=== PATIENT | female | born 1965 | race Caucasian/White ===

== ENCOUNTER 2018-05-12 13:15 | Inpatient (IN) | payer BC ==
[~2018-05-12] VITALS: Ht 165.1 cm; Wt 73.9 kg
[~2018-05-12 13:15] MED LIST: DEXILANT60 MG PO; ZANTAC PO
[2018-05-12 14:14] LABS: BILIRUBIN,URINE NEGATIVE (NEGATIVE); CLARITY,URINE HAZY (CLEAR); COLOR,URINE YELLOW (YELLOW); KETONES,URINE TRACE (NEGATIVE); LEUKOCYTE ESTERASE ,URINE 1+ (NEGATIVE); NITRITE,URINE NEGATIVE (NEGATIVE); PROTEIN,URINE DIPSTICK NEGATIVE (NEGATIVE); URINE UROBILINOGEN 0.2 mg/dL (0.2 - 1)
[2018-05-12 14:19] LABS: BACTERIA,URINE FEW /HPF; EPITHELIAL CELLS,URINE FEW /LPF
[2018-05-12 14:26] LABS: BASOPHILS # (AUTO) 0.1 (0.0-0.1); BASOPHILS % 0.9 % (0.0-1.0); EOSINOPHILS # (AUTO) 0.3 (0.0-0.4); EOSINOPHILS % 2.7 % (0.0-6.0); HEMOGLOBIN 14.2 g/dL (12.0-16.0); LYMPHOCYTES # (AUTO) 1.9 (1.0-3.2); LYMPHOCYTES % 15.3 % (18.0-39.1); MEAN CORPUSCULAR HEMOGLOBIN 31.5 pg (28-32); MEAN CORPUSCULAR HGB CONC 34.6 g/dL (31-35); MEAN CORPUSCULAR VOLUME 90.9 fL (81-99); MONOCYTES % 7.9 % (4.4-11.3); NEUTROPHILS # (AUTO) 9.3 (2.1-6.9); NEUTROPHILS % 72.8 % (38.7-80.0); PLATELET COUNT 400 x10e3/uL (140-360); RED BLOOD COUNT 4.51 x10e6/uL (3.6-5.1); RED CELL DISTRIBUTION WIDTH 11.7 % (11.7-14.4)
[2018-05-12 14:51] LABS: BLOOD UREA NITROGEN 15 mg/dL (7-26); BUN/CREATININE RATIO 17 (6-25); CALCIUM 9.3 mg/dL (8.4-10.2); CARBON DIOXIDE 24 mmol/L (22-29); CHLORIDE 104 mmol/L (98-107); CREATININE, SERUM 0.87 mg/dL (0.57-1.11); EST GLOMERULAR FILTRATION RATE > 60 ML/MIN (60-); GLUCOSE 87 mg/dL (74-118); SODIUM 140 mmol/L (136-145)
--- NOTE | 2018-05-12 16:03 | Diagnostic Imaging Report ---
CT Abdomen And Pelvis with Intravenous Contrast INDICATION: ^RLQ pain ^[id number] ^1515 TECHNIQUE: Thin collimation axial images obtained from the diaphragm to the level of the pubic symphysis following the uneventful administration of 100 cc of low osmolar, nonionic intravenous contrast. Dose reduction techniques used: Automated exposure control, adjustment of the mAs and/or kVp according to patient size, standardized low-dose protocol, and/or iterative reconstruction technique. RADIATION DOSE: Total DLP: 372.8 mGy*cm Estimated effective dose: (DLP x 0.015 x size factor) mSv CTDIvol has been reviewed. It is below the limits set by the Radiation Protocol Committee (RPC). COMPARISON: None. ABDOMEN FINDINGS: Lung Bases: Clear. The visualized portions of the mediastinum are normal.. Liver: Normal attenuation. 3 mm low attenuating lesion in segment 2/3 is too small to characterize but is statistically a cyst. No enhancing lesions. Gallbladder: Present and appears normal. No biliary ductal dilatation. Pancreas: Normal attenuation without mass or ductal dilatation. Spleen: Normal in size. No evidence of mass. Adrenal Glands: No evidence for mass. Kidneys: Right: Normal enhancement. No soft tissue mass. No hydronephrosis. Left: Normal enhancement. No soft tissue mass. No hydronephrosis. Lymph Nodes: No enlarged abdominal or retroperitoneal lymph nodes.. Aorta: Normal in diameter PELVIS FINDINGS: Bowel: Stomach: Collapsed and normal in appearance. Small Bowel: Normal in caliber with normal wall thickness. The terminal ileum is normal. Large Bowel: Diverticulosis coli, with inflamed 2.3 cm diverticulum and an inflamed 5 mm diverticulum in the cecal base. No associated fluid collection. Appendix: Visualized from images 56-50 and is normal in appearance. Bladder: Normal. The uterus is atrophic. No adnexal mass. Peritoneum/retroperitoneum: No free fluid or fluid collection. Bones: Minimal degenerative changes of the lower lumbar spine. Soft tissues: Unremarkable. IMPRESSION: Acute diverticulitis involving the cecum. No inflammation of the appendix or terminal ileum. No bowel obstruction. Signed by: Dr. Delmis Clark MD on 05/12/2018 4:00 PM
[2018-05-12] MEDS ORDERED: CEFTRIAXONE SOD 1 GM/NS 50 ML 50 ML IV SCH (16:30)
[2018-05-12] MEDS: METRONIDAZOLE 500MG/NS 100ML 100 ML IV SCH ×2 (16:42→22:18)
[2018-05-12] MEDS: SODIUM CHLORIDE 0.9% 1000ML 1,000 ML IV SCH (16:55)
[2018-05-12] MEDS: ONDANSETRON HCL INJ 2MG/ML 2ML 2 MG/ML VIAL IV PRN ×2 (17:04→22:18)
[2018-05-12] MEDS: MORPHINE SULFATE INJ 4 MG/ML INJ 1ML IV PRN ×2 (17:06→22:18)
--- OUTSIDE RECORDS SUMMARY | 2018-05-12 17:09 | XMS REPORT ---
Author Author [facility] Address Unknown Phone Unavailable Care Team Providers Care Licensed Reactor Operator Name Role Phone Bran GREER Unavailable Unavailable Problems This patient has no known problems. Allergies, Adverse Reactions, Alerts This patient has no known allergies or adverse reactions. Medications This patient has no known medications. Results Test Description Test Time Test Comments Text Results Atomic Results Result Comments CT ABDOMEN/PELVIS W 2018-05-12 15:55:00 [place] [id number] Patient Name: NELSON MICHELE MR #: [id number] : 1965 Age/Sex: 52/F Req #: [id number] Adm Physician: Ordered by: BELKYS GALLEGO NP Report #: [id number] Location: ER Room/Bed: Procedure: [id number] CT/CT ABDOMEN/PELVIS W Exam Date: 05/12/18 Exam Time: 1515 REPORT STATUS: Signed CT Abdomen And Pelvis with Intravenous Contrast I NDICATION: RLQ pain [id number] 1515 TECHNIQUE: Thin collimation axial images obtained from the diaphragm to the level of the pubic symphysis following the uneventful administration of 100 cc of low osmolar, nonionic intravenous contrast. Dose reduction techniques used: Automated exposure control, adjustment of the mAs and/or kVp according to patient size, standardized low-dose protocol, and/or iterative reconstruction technique. RADIATION DOSE: Total DLP: 372.8 mGy*cm Estimated effective dose: (DLP x 0.015 x size factor) mSv CTDIvol has been reviewed. It is below the limits set by the Radiation Protocol Committee (RPC). COMPARISON: None. ABDOMEN FINDINGS: Lung Bases: Clear. The visualized portions of the mediastinum are normal.. Liver: Normal attenuation. 3 mm low attenuating lesion in segment 2/3 is too small to characterize but is statistically a cyst. No enhancing lesions. Gallbladder: Present and appears normal. No biliary ductal dilatation. Pancreas: Normal attenuation without mass or ductal dilatation. Spleen: Normal in size. No evidence of mass. Adrenal Glands: No evidence for mass. Kidneys: Right: Normal enhancement. No soft tissue mass. No hydronephrosis. Left: Normal enhancement. No soft tissue mass. No hydronephrosis. Lymph Nodes: No enlarged abdominal or retroperitoneal lymph nodes.. Aorta: Normal in diameter PELVIS FINDINGS: Bowel: Stomach: Collapsed and normal in appearance. Small Bowel: Normal in caliber with normal wall thickness. The terminal ileum is normal. Large Bowel: Diverticulosis coli, with inflamed 2.3 cm diverticulum and an inflamed 5 mm diverticulum in the cecal base. No associated fluid collection. Appendix: Visualized from images 56-50 and is normal in appearance. Bladder: Normal. The uterus is atrophic. No adnexal mass. Peritoneum/retroperitoneum: No free fluid or fluid collection. Bones: Minimal degenerative changes of the lower lumbar spine. Soft tissues: Unremarkable. IMPRESSION: Acute diverticulitis involving the cecum. No inflammation of the appendix or terminal ileum. No bowel obstruction. Signed by: Dr. Katherine Clark MD on 05/12/2018 4:00 PM Dictated By: KATHERINE CLARK MD 1600 Transcribed By: FLETCHER on 05/12/18 1600 COPY TO: BELKYS GALLEGO NP
--- NOTE | 2018-05-12 17:50 | NUR ---
RECD PT FROM ER VIA STRETCHER AAOX3,PAIN LEVEL 3-4 LT ABDOMEN,MEDICATED IN ER,PT AMBULATED TO BED ,HOB ELEVATED,CALL SORIANO IN REACH,IV FLUIDS INFUSHING TO RT AC PATENT,ANTIBIOTIC GIVEN.VS135/83,66,20,97.6
[2018-05-12] MEDS: LEVOFLOXACIN 500MG/D5W 100ML 100 ML IV SCH (18:11)
[2018-05-12 18:16] VITALS: BP 135/83
[2018-05-12] MEDS ORDERED: IOPAMIDOL 370 MG/ML 200 ML INFUS..BTL INJ ONE (18:24)
[2018-05-12] MEDS ORDERED: SODIUM CHLORIDE 0.9% 50ML 50 ML ONE (18:24)
[2018-05-12 19:00] VITALS: BP 124/61
--- NOTE | 2018-05-12 19:00 | NUR ---
patient received awake, alert, lying quietly in bed. pain minimal at this time. ivf continue to infuse without difficulty. initial nursing assessment complete at this time. patient instructed to call for assistance when needed.
[2018-05-12 19:58] VITALS: BP 124/61
[2018-05-12 20:00] VITALS: BP 124/61
[2018-05-13] VITALS (7 sets, daily range): BP systolic 102–121; BP diastolic 57–79
[2018-05-13] MEDS: SODIUM CHLORIDE 0.9% 1000ML 1,000 ML IV SCH ×3 (03:25→16:29)
[2018-05-13] MEDS: METRONIDAZOLE 500MG/NS 100ML 100 ML IV SCH ×4 (05:00→22:41)
[2018-05-13 05:50] LABS: BASOPHILS # (AUTO) 0.1 (0.0-0.1); BASOPHILS % 0.7 % (0.0-1.0); EOSINOPHILS # (AUTO) 0.3 (0.0-0.4); EOSINOPHILS % 3.1 % (0.0-6.0); HEMOGLOBIN 12.2 g/dL (12.0-16.0); LYMPHOCYTES # (AUTO) 1.6 (1.0-3.2); LYMPHOCYTES % 16.2 % (18.0-39.1); MEAN CORPUSCULAR HEMOGLOBIN 31.4 pg (28-32); MEAN CORPUSCULAR HGB CONC 33.9 g/dL (31-35); MEAN CORPUSCULAR VOLUME 92.8 fL (81-99); MONOCYTES # (AUTO) 0.8 (0.2-0.8); MONOCYTES % 8.2 % (4.4-11.3); NEUTROPHILS % 71.5 % (38.7-80.0); PLATELET COUNT 291 x10e3/uL (140-360); RED BLOOD COUNT 3.88 x10e6/uL (3.6-5.1); RED CELL DISTRIBUTION WIDTH 11.7 % (11.7-14.4)
[2018-05-13 06:30] LABS: ALANINE AMINOTRANSFERASE 15 IU/L (0-55); ALBUMIN 3.6 g/dL (3.5-5.0); ALBUMIN/GLOBULIN RATIO 1.3 (0.8-2.0); ALKALINE PHOSPHATASE 63 IU/L (40-150); ANION GAP 10.9 mmol/L (8-16); BLOOD UREA NITROGEN 8 mg/dL (7-26); BUN/CREATININE RATIO 9 (6-25); CALCIUM 9.3 mg/dL (8.4-10.2); CARBON DIOXIDE 27 mmol/L (22-29); CHLORIDE 106 mmol/L (98-107); CREATININE, SERUM 0.91 mg/dL (0.57-1.11); EST GLOMERULAR FILTRATION RATE > 60 ML/MIN (60-); GLUCOSE 93 mg/dL (74-118); POTASSIUM 3.9 mmol/L (3.5-5.1); SODIUM 140 mmol/L (136-145)
--- NOTE | 2018-05-13 07:14 | NUR ---
PATIENT IN BED RESTING WITH NO S/S OF DISCOMFORT. CALL LIGHT AT REACH.
[2018-05-13] MEDS: LEVOFLOXACIN 500MG/D5W 100ML 100 ML IV SCH (09:32)
[2018-05-13] MEDS: PANTOPRAZOLE 40 MG 10ML VIAL IV SCH (09:32)
--- NOTE | 2018-05-13 11:15 | NUR ---
MD IN AT THIS TIME. PATIENT'S DIET ADVANCED.
--- NOTE | 2018-05-13 15:27 | NUR ---
PATIENT ASSISTED WITH SHOWER AND BACK TO BED. IV FLUID INFUSING ORDERED. BED IN LOWER POSITION, CALL LIGHT AT REACH.
--- NOTE | 2018-05-13 19:17 | NUR ---
RECEIVED REPORT FROM 7AM NURSE, ROUNDS DONE, PATIENT RESTING IN BED WITH HOB ELEVATED, IV INFUSING. CALL LIGHT IN REACH.
[2018-05-14] VITALS (7 sets, daily range): BP systolic 107–127; BP diastolic 73–84
[2018-05-14] MEDS: SODIUM CHLORIDE 0.9% 1000ML 1,000 ML IV SCH (00:26)
[2018-05-14] MEDS: METRONIDAZOLE 500MG/NS 100ML 100 ML IV SCH ×2 (04:54→11:06)
--- NOTE | 2018-05-14 04:56 | NUR ---
PATIENT CONTINUE RESTING, DR. Awais CUMMINGS VISITED, NEW ORDERS NOTED, PATIENT WAS ABLE TO REST, MINIMAL COMPLAINT OF ABDOMINAL DISCOMFORT. IV INFUSING, CALL LIGHT IN REACH. WILL CONTINUE TO MONITOR.
[2018-05-14] MEDS ORDERED: SODIUM CHLORIDE 0.9% 1000ML 1,000 ML IV SCH (05:00)
[2018-05-14 06:02] LABS: BASOPHILS # (AUTO) 0.1 (0.0-0.1); BASOPHILS % 0.7 % (0.0-1.0); EOSINOPHILS # (AUTO) 0.2 (0.0-0.4); EOSINOPHILS % 1.9 % (0.0-6.0); HEMATOCRIT 34.1 % (34.2-44.1); HEMOGLOBIN 11.5 g/dL (12.0-16.0); LYMPHOCYTES # (AUTO) 1.8 (1.0-3.2); LYMPHOCYTES % 18.2 % (18.0-39.1); MEAN CORPUSCULAR HEMOGLOBIN 31.4 pg (28-32); MEAN CORPUSCULAR HGB CONC 33.7 g/dL (31-35); MEAN CORPUSCULAR VOLUME 93.2 fL (81-99); MONOCYTES # (AUTO) 0.8 (0.2-0.8); MONOCYTES % 8.2 % (4.4-11.3); NEUTROPHILS % 70.5 % (38.7-80.0); PLATELET COUNT 300 x10e3/uL (140-360); RED BLOOD COUNT 3.66 x10e6/uL (3.6-5.1); RED CELL DISTRIBUTION WIDTH 11.5 % (11.7-14.4)
[2018-05-14 06:18] LABS: ANION GAP 10.8 mmol/L (8-16); BLOOD UREA NITROGEN < 5 mg/dL (7-26); BUN/CREATININE RATIO 6 (6-25); CALCIUM 9.1 mg/dL (8.4-10.2); CARBON DIOXIDE 26 mmol/L (22-29); CHLORIDE 110 mmol/L (98-107); EST GLOMERULAR FILTRATION RATE > 60 ML/MIN (60-); GLUCOSE 101 mg/dL (74-118); POTASSIUM 3.8 mmol/L (3.5-5.1); SODIUM 143 mmol/L (136-145)
--- NOTE | 2018-05-14 07:03 | NUR ---
ROUNDS DONE, NO DISTRESS NOTED. CALL LIGHT IN REACH. IV CONTINUE INFUSING. WILL CONTINUE TO MONITOR.
--- NOTE | 2018-05-14 07:15 | NUR ---
PATIENT IN BED RESTING WITH EYES CLOSED, NO RESPIRATORY DISTRESS OBSERVED. IV FLUID INFUSING ORDERED. BED IN LOWER POSITION, CALL LIGHT AT REACH.
[2018-05-14] MEDS: LEVOFLOXACIN 500MG/D5W 100ML 100 ML IV SCH (09:41)
[2018-05-14] MEDS: PANTOPRAZOLE 40 MG 10ML VIAL IV SCH (09:41)
--- NOTE | 2018-05-14 11:07 | NUR ---
PATIENT AMBULATING IN HALLWAY WITH FAMILY MEMBER, NO COMPLAIN VOICED.
--- NOTE | 2018-05-14 14:25 | NUR ---
PATIENT REQUESTED TO GO HOME. CALL PLACED TO MD AWAITING CALL BACK.
--- NOTE | 2018-05-14 15:40 | NUR ---
CALL BACK RECEIVED FROM MD STATING THAT HE IS COMING TO SEE PATIENT, PATIENT NOTIFIED.
[2018-05-14] MEDS ORDERED: LEVAQUIN500 MG PO (17:13)
[2018-05-14] MEDS ORDERED: FLAGYL250 MG PO (17:14)
--- NOTE | 2018-05-14 17:40 | NUR ---
PATIENT DISCHARGED HOME. DISCHARGE INSTRUCTIONS, PRESCRIPTIONS, AND FOLLOW UP GIVEN TO PATIENT, SHE VERBALIZED UNDERSTANDING. IV TO RIGHT AC REMOVED WITH TIP INTACT. ALL PERSONAL ITEMS TAKEN WITH PATIENT. REFUSED WHEEL CHAIR, BUT WAS ACCOMPANY BY HOSPITAL STAFF TO FRONT LOBBY IN STABLE CONDITION.
[2018-05-15 20:00] VITALS: BP 129/71
== END 2018-05-14 17:35 | disposition home or self-care (01) | DRG 392 ==
LOC: ER 13:15 → ERHOLD 16:29 → MED/SURG3 17:52
DX: K57.92 Diverticulitis of intestine, part unspecified, without perforation or abscess without bleeding (principal); K21.9 Gastro-esophageal reflux disease without esophagitis
CPT/HCPCS: 36415; 74177; 80048; 80053; 81001; 81025; 85025; 87086; 99284; J1956; J2270; J2405; J7030; Q9967

== ENCOUNTER → 2018-05-28 | Outpatient (CLI) | payer BC ==
[~2018-05-28] MED LIST changes: +FLAGYL250 MG PO; +LEVAQUIN500 MG PO
--- NOTE | 2018-05-28 16:29 | Diagnostic Imaging Report ---
Exam: Bilateral hips, left femur History: Status post fall, left thigh pain Comparison: CT abdomen and pelvis 05/12/2018 Findings: No acute, displaced hip fracture or dislocation. Femoral heads project appropriately over the acetabula. Joint spaces are well-maintained. The left femur is intact, without displaced fracture. Partially visualized left knee joint space is well-maintained. Soft tissues unremarkable. Impression: No acute osseous abnormality. Signed by: Dr. Jeremy Dotson M.D. on 05/28/2018 4:26 PM
== END ==
LOC: RAD 15:30
PROVIDERS: ATTEND Family Medicine
DX: M25.552 Pain in left hip (principal); M79.652 Pain in left thigh; S80.12XA Contusion of left lower leg, initial encounter
CPT/HCPCS: 73521